=== PATIENT | male | born 1995 | race Caucasian/White ===

== ENCOUNTER 2017-12-26 19:58 | Emergency (ER) | payer OTHER ==
[~2017-12-26] VITALS: Ht 175.3 cm; Wt 59.0 kg
[2017-12-26 20:40] LABS: URINE BILIRUBIN NEGATIVE (Negative); URINE BLOOD NEGATIVE (Negative); URINE CLARITY CLEAR; URINE COLOR YELLOW; URINE GLUCOSE-RANDOM* NEGATIVE (Negative); URINE KETONES NEGATIVE (Negative); URINE LEUKOCYTES NEGATIVE (Negative); URINE NITRITE NEGATIVE (Negative); URINE PROTEIN (DIPSTICK) NEGATIVE (Negative); URINE UROBILINOGEN 0.2 E.U./dl (0.2-1.0)
[2017-12-26 21:47] LABS: ABSOLUTE NEUTROPHILS 4.5 thou/uL (1.4-8.2); BASOPHILS 0.4 % (0.0-2.0); EOSINOPHILS 1.4 % (0.0-3.0); HEMOGLOBIN 15.8 gm/dL (14.0-18.0); MCH 29.2 pg (26.0-34.0); MCHC 34.3 g/dL (28.0-37.0); MONOCYTES 7.7 % (1.0-8.0); PLATELET COUNT 216 thou/uL (150-400); POLYS 56.5 % (36.0-66.0); RBC 5.41 mil/uL (4.50-6.00); RDW 13.7 % (10.5-14.5)
[2017-12-26 21:51] LABS: CALCIUM 9.6 mg/dL (8.5-10.1); CREATININE 0.8 mg/dL (0.7-1.3); POTASSIUM 4.3 mmol/L (3.5-5.1)
[2017-12-26 21:56] LABS: ALBUMIN 4.5 g/dL (3.4-5.0); TOTAL BILIRUBIN 0.6 mg/dL (<0.1-1.0); TOTAL PROTEIN 7.5 g/dL (6.4-8.2)
[2017-12-26] MEDS ORDERED: PEPCID20 MG PO (22:20)
[2017-12-26] MEDS ORDERED: PRILOSEC 20 MG20 MG PO (22:20)
[2017-12-26 22:23] VITALS: BP 133/67
== END 2017-12-26 22:29 | disposition home or self-care (01) ==
LOC: ER 19:58
PROVIDERS: Physician Assistant
DX: R10.13 Epigastric pain (principal); R10.10 Upper abdominal pain, unspecified

== ENCOUNTER 2020-06-13 11:13 | Emergency (ER) | payer OTHER ==
[~2020-06-13] VITALS: Ht 180.3 cm; Wt 79.4 kg
[~2020-06-13 11:13] MED LIST: PEPCID20 MG PO; PRILOSEC 20 MG20 MG PO
[2020-06-13] MEDS ORDERED: KEFLEX500 M1 PO (13:21)
[2020-06-13] MEDS ORDERED: IBU600 MG PO (13:21)
[2020-06-13] MEDS ORDERED: NORCO 5-325 TA1 EAC2 PO (13:27)
[2020-06-13 13:46] VITALS: BP 108/46
== END 2020-06-13 13:46 | disposition home or self-care (01) ==
LOC: ER 11:13
DX: S67.193A Crushing injury of left middle finger, initial encounter (principal); Z79.899 Other long term (current) drug therapy; W23.0XXA Caught, crushed, jammed, or pinched between moving objects, initial encounter; Y93.89 Activity, other specified; Y92.89 Other specified places as the place of occurrence of the external cause; Y99.8 Other external cause status